=== PATIENT | female | born 1990 | race African-American/Black ===

== ENCOUNTER 2017-04-30 18:35 | Emergency (ER) | payer SELFPAY ==
[2017-04-30] MEDS ORDERED: ZOFRAN INJ 4 MG VIAL IVP ONE (18:36)
[2017-04-30] MEDS ORDERED: MORPHINE SULFATE INJ 4 MG IVP ONE (18:36)
[2017-04-30] MEDS ORDERED: ZOFRAN INJ 4 MG VIAL ONE (18:37)
[2017-04-30] MEDS ORDERED: NS 1000 ML 1,000 ML IV ONE (18:38)
[2017-04-30] MEDS ORDERED: MORPHINE SULFATE INJ 4 MG ONE (18:38)
[2017-04-30 18:42] VITALS: BMI 19.5
[2017-04-30] MEDS ORDERED: NS 1000 ML 1,000 ML ONE (18:42)
--- NOTE | 2017-04-30 18:44 | DR.GENAD ---
HPI - HPI Comment HPI Comment: PATIENT IN SEVERE PAIN.PULSES INTACT. - Complaint/Symptoms Chief Complaint Doctors Comments: RIGHT SHOLDER DISLOCATION. HAPPEN BEFORE COMING. HISTORY PREVIOUS DISLOATION OF SAME SHOULDER. - Nurses notes reviewed Nurses Notes Review: Yes - Source History Provided: Patient - Mode of Arrival Mode of Arrival: Ambulatory - Timing Came on: Suddenly - Duration Duration: Constant Duration: Hours - Severity Severity: Moderate PMH - PMH Past Surgical History: No Surgical History: No History - Family History Family Medical History: Diabetes Mellitus, Hypertension - Social History Do you use any recreational Drugs:: No ROS - Review of Systems Constitutional: No Symptoms Reported Eyes: No Symptoms Reported ENTM: No Symptoms Reported Respiratoy: No Symptoms Reported Cardiovascular: No Symptoms Reported Gastrointestinal/Abdominal: No Symptoms Reported Genitourinary: No Symptoms Reported Neurological: No Symptoms Reported Musculoskeletal: Muscle Pain, Right, Shoulder Integumentary: No Symptoms Reported Hematologic/Lymphatic: No Symptoms Reported Endocrine: No Symptoms Reported All Other Systems: Reviewed and Negative PE - Vital Signs Vitals: Pulse Rate [Apical] 77 Pulse Rate 109 Respiratory Rate 18 Blood Pressure [Left Arm] 138/96 Blood Pressure [Right Arm] 118/88 Blood Pressure 134/82 O2 Sat by Pulse Oximetry 100 - General Limitations: No Limitations General Appearance: Alert - Head Head Exam: Normal Inspection - Eyes Eye exam: Normal Appearance - ENT ENT Exam: Normal External Ear Exam External Ear Exam: Normal External Inspection TM/Canal Exam: Bilateral Normal Nose Exam: Normal Nose Exam Mouth Exam: Normal Inspection Throat Exam: Normal Inspection - Neck Neck Exam: Trachea Midline - Chest Chest Inspection: Symmetric Chest Wall Rise - Respiratory Respiratory Exam: Normal Lung Sounds Bilat Respiratory Exam: Bilateral Clear to Auscultation - Cardiovascular Cardiovascular Exam: Regular Rate, Normal Rhythm, Normal Heart Sounds - Abdominal Exam Abdominal Exam: Normal Bowel Sounds, Soft. negative: Tenderness - Extremities Extremities Exam: Tenderness (RT SHOULDER DISLOCATION) - Back Back Exam: Normal Inspection - Neurologic Neurological Exam: Alert, Oriented X3 - Psychiatric Psychiatric Exam: Anxious - Skin Skin Exam: Normal Color MDM - Additional Information Additional Information Obtained From: Family - Differential Diagnosis Differential Diagnosis: ANTERIOR RT SHOULDER DISLOCATION. Course - Treatment Treatment: SEE ORDERS. SHOULDER DISLOATION REDUCE UNDER CONSCIOUS SDATION. - Reevaluation 1st: Improved - Education/Counseling Education/Counseling: Patient, Family, Education Educated On: Treatment, Diagnosis, Needs for Follow Up ROR - XRAY XRAY Interpreted by: Radiologist XRAY Findings: REPORT DISCUSS WITH PATIENT. Procedures - Joint Reduction Joint Reduction Site: shoulder (R) Conscious Sedation: Yes Reduction Attempts: 1 Pre-Procedure NV Exam: Yes Post Joint Reduction Film: joint reduced - Diagnosis Discharge Problem: Anterior dislocation of right shoulder Qualifiers: Encounter type: initial encounter Qualified Code(s): S43.014A - Anterior dislocation of right humerus, initial encounter - Discharge Plan Disposition: HOME, SELF-CARE Condition: Stable Prescriptions: Ibuprofen [MOTRIN TAB 600 MG *] 600 mg PO TID PRN #20 tab PRN Reason: Pain/Inflammation - Follow ups/Referrals Follow ups/Referrals: [facility],None [Primary Care Provider] - 3 days RAHUL HACKETT [STAFF PHYSICIAN] - 3 days - Instructions Instructions: Shoulder Sprain Additional Instructions: YOUR SHOULDER WAS DISLOCATED. THIS WAS REDUCE AND CORRECTED. RETURN TO ED IF WORSE.
[2017-04-30] MEDS ORDERED: DIPRIVAN VIAL 20 ML ONE (18:57)
[2017-04-30] MEDS ORDERED: DIPRIVAN VIAL IVP ONE (19:01)
[2017-04-30 19:50] VITALS: BP 138/96
[2017-04-30] MEDS ORDERED: TORADOL TAB PO ONE ×2 (20:00→20:01)
--- NOTE | 2017-04-30 20:27 | RAD ---
Right shoulder-two views Indication: Postreduction radiograph. Findings: The acromioclavicular joints and glenohumeral joints project as expected. Hill-Sachs deform ity of the right shoulder suggested. Impression: Successful reduction of the right anterior shoulder dislocation. Hill-Sachs deformity sug gested. The anterior labrum insufficiency present. Follow-up with orthopedics. Reported By:
--- NOTE | 2017-04-30 20:29 | RAD ---
HISTORY: Right shoulder pain, dislocation Study: Two-view right shoulder Comparison: 06/20/16 Findings: Study fiore anterior-inferior shoulder dislocation. No fractures are seen. Visualized portions of the p neumothorax were unremarkable. IMPRESSION: 1. Anterior inferior shoulder dislocation. Reported By:
== END 2017-04-30 20:04 | disposition home or self-care (01) ==
LOC: ER 18:46
PROC: 0RSJ3ZZ Reposition Right Shoulder Joint, Percutaneous Approach (ICD-10-PCS; principal; 2017-04-30)
DX: S43.014A Anterior dislocation of right humerus, initial encounter (principal); Y33.XXXA Other specified events, undetermined intent, initial encounter; Y92.9 Unspecified place or not applicable
CPT/HCPCS: 23650; 73030; 93041; 96365; 96374; 96375; 99283; A4222; J2270; J2405; J3490